=== PATIENT | male | born 1995 | race Caucasian/White ===

== ENCOUNTER 2016-04-05 18:37 | Emergency (ER) | payer SELFPAY ==
[2016-04-05] MEDS ORDERED: metroNIDAZOLE (FLAGYL) 250 MG TAB As Ordered ONE (20:13)
--- NOTE | 2016-04-05 21:01 | EDDOCDS ---
Nurse's Notes [facility] Name: Fredrick Cunningham Age: 20 yrs Sex: Male : 1995 Arrival Date: 04/05/2016 Time: 18:37 Bed TR8 Private MD: No Pcp Diagnosis: Encounter for screening for infections with a predominantly sexual mode of transmission-TRICHOMONIASIS Presentation: 04/05 18:45 Presenting complaint: Patient states: Pt presents requesting STD testing denies any sx dls states he think he has been exposed. Adult Sepsis Screening: The patient does not have new or worsening altered mentation. Patient's respiratory rate is less than 22. Systolic blood pressure is greater than 100. Patient has a qSOFA score of 0- Negative Sepsis Screen. Suicide/Homicide risk assessment- the patient denies having any suicidal and/or homicidal ideations and does not present with any other emotional, behavioral or mental health complaints. Status: Patient is not a auto body service mechanic or dependent. Transition of care: patient was not received from another setting of care. 18:45 Acuity: ZOILA Level 4 dls 18:45 Method Of Arrival: Walkin/Carried/Asstd dls Triage Assessment: 18:46 General: Appears in no apparent distress, cachectic, slender, well developed, Behavior dls is cooperative, quiet. Pain: Denies pain. HIV screening NA for this visit Offered previously. Historical: - Allergies: no known allergies; - Home Meds: 1. none - PMHx: none; - PSHx: none; - Social history: Smoking status: Patient uses tobacco products, light tobacco smoker. No barriers to communication noted, The patient speaks fluent Arabic. - Family history: Not pertinent. - : The pt / caregiver states he / she is not on anticoagulants. Home medication list is obtained from the patient. - Exposure Risk Screening:: None identified. Screenin:58 Screening information is obtained from the patient. Fall risk: No risks identified. ms18 Assistance ADL's: requires no assistance with activities of daily living. Abuse/DV Screen: The patient / caregiver reports he/she is: not in a situation that causes fear, pain or injury. Nutritional screening: No deficits noted. Advance Directives: There is no living will. home support is adequate. Assessment: 20:58 General: Appears in no apparent distress, comfortable, Behavior is appropriate for age, ms18 cooperative. Pain: Location: pelvis. Neurological: No deficits noted. Respiratory: No deficits noted. GI: Abdomen is non- distended. : Patient is sexually active. Derm: Skin is pink, warm & dry. normal. Vital Signs: 18:39 BP 138 / 67; Pulse 89; Resp 18 S; Temp 98.2(O); Pulse Ox 97% on R/A; Weight 65.77 kg gr2 (R); Height 5 ft. 9 in. (175.26 cm) (R); Pain 2/10; 20:53 BP 106 / 59; Pulse 52; Resp 18; Temp 99.0(TE); Pulse Ox 97% on R/A; Pain 0/10; ar3 18:39 Body Mass Index 21.41 (65.77 kg, 175.26 cm) gr2 Vitals: 18:39 Log In Time: April 05, 2016 at 18:39. gr2 ED Course: 18:39 Patient visited by Danielle Brennan. gr2 18:39 No Pcp is Private Physician. gr2 18:39 Patient moved to Waiting gr2 18:41 Patient visited by Danielle Brennan. gr2 18:41 Patient moved to Pre RCE gr2 18:46 Triage Initiated dls 19:30 Remington Davis RPA-C is PHCP. ck7 19:30 Scottie Scott DO is Attending Physician. ck7 19:30 Patient moved to Triage 2 ar3 19:43 Patient visited by Remington Davis RPA-C. ck7 19:47 GC & Chlamydia Amplification Sent. ar3 19:55 Urine Culture Sent. ar3 19:55 UA Sent. ar3 20:15 Patient moved to TR1 cz 20:41 Patient visited by Remington Davis RPA-C. ck7 20:44 [facility] is Referral Physician. ck7 20:45 Patient moved to PR1 / 25 cz 20:46 Patient moved to TR8 cz 20:49 Patient moved to PR1 / 25 ar3 20:53 Patient visited by Lorie Cox PCA. ar3 20:57 Patient moved to TR7 cz 20:57 Patient moved to TR8 ms18 20:58 The patient / caregiver is instructed regarding the plan of care and ED course. Patient ms18 has correct armband on for positive identification. Property sent home with patient. :Personal belongings accompany Pt. 20:58 No IV's were initiated during this patient's visit. No procedures done that require ms18 assistance. Administered Medications: 20:15 Drug: metroNIDAZOLE 500 mg [metronidazole 250 mg tablet (2 tabs)] Route: PO; cz Order Results: Lab Order: UA; SPEC'M 04/05/16 19:43 Test: APPEARANCE, URINE; Value: CLOUDY; Range: CLEAR; Abnormal: Above high normal; Status: F Test: COLOR, URINE; Value: YELLOW; Range: YELLOW; Status: F Test: PH,URINE; Value: 6.0; Range: 5.0-9.0; Units: UNITS; Status: F Test: SPECIFIC GRAVITY URINE AUTO; Value: 1.021; Range: 1.002-1.035; Status: F Test: PROTEIN, URINE AUTO; Value: 1+; Range: NEGATIVE; Abnormal: Above high normal; Units: mg/dL; Status: F Test: GLUCOSE, URINE (UA) AUTO; Value: NEGATIVE; Range: NEGATIVE; Units: mg/dL; Status: F Test: KETONE, URINE AUTO; Value: NEGATIVE; Range: NEGATIVE; Units: mg/dL; Status: F Test: UROBILINOGEN, URINE AUTO; Value: 0.2; Range: 0.0-2.0; Units: mg/dL; Status: F Test: BILIRUBIN, URINE AUTO; Value: NEGATIVE; Range: NEGATIVE; Status: F Test: NITRITE, URINE AUTO; Value: NEGATIVE; Range: NEGATIVE; Status: F Test: LEUKOCYTE ESTERASE, URINE AUTO; Value: NEGATIVE; Range: NEGATIVE; Status: F Test: BLOOD, URINE BLOOD; Value: NEGATIVE; Range: NEGATIVE; Status: F Test: WBC, URINE AUTO; Value: 1; Range: 0-3; Units: /HPF; Status: F Test: RBC, URINE AUTO; Value: 1; Range: 0-3; Units: /HPF; Status: F Test: BACTERIA, URINE AUTO; Value: NEGATIVE; Range: NEGATIVE; Status: F Test: SQUAMOUS EPITHELIAL CELL UR AU; Value: 0; Range: 0-6; Units: /HPF; Status: F Test: MUCUS, URINE; Value: SMALL; Range: NEGATIVE; Status: F Test: HYALINE CAST, URINE AUTO; Value: 0; Range: 0-1; Units: /LPF; Status: F Test: AMORPHOUS SEDIMENT; Value: MODERATE; Range: NEGATIVE; Abnormal: Above high normal; Status: F Outcome: 20:44 Discharge ordered by Provider. ck7 20:58 Discharge Assessment: Patient awake, alert and oriented x 3. No cognitive and/or ms18 functional deficits noted. Patient verbalized understanding of disposition instructions. patient administered narcotics - no. The following High Risk Discharge criteria are identified: None. Discharged to home ambulatory. Condition: good Condition: stable Condition: improved. Discharge instructions given to patient, Instructed on discharge instructions, follow up and referral plans. medication usage, Demonstrated understanding of instructions, medications, Pt was receptive of discharge instructions/ teaching. Prescriptions given X 1. No special radiology studies were completed. 21:00 Patient left the ED. ms18 Signatures: Tiffanie Huynh, RN RN Luis M Nelson RN RN cz Lorie Cox, KERSEY DEPARTMENT SUPERVISOR KERSEY DEPARTMENT SUPERVISOR ar3 Remington Davis, RPA-C RPA-Cck7 Danielle Brennan gr2 Shasta Cunningham RN RN ms18 [facility]
--- NOTE | 2016-04-05 21:01 | EDDOCDS ---
Physician Documentation [facility] Name: Fredrick Cunningham Age: 20 yrs Sex: Male : 1995 Arrival Date: 04/05/2016 Time: 18:37 Bed TR8 Private MD: No Pcp Disposition: 04/05/16 20:44 Discharged to Home/Self Care. Impression: Encounter for screening for infections with a predominantly sexual mode of transmission - TRICHOMONIASIS. - Condition is Stable. - Discharge Instructions: Trichomoniasis. - Prescriptions for Flagyl 500 mg Oral Tablet - take 1 tablet by ORAL route every 12 hours for 7 days; 14 tablet. - Medication Reconciliation, Local Pharmacy Hours form. - [facility] ; When: 2 - 3 days; Reason: Recheck today's complaints, Continuance of care. - Problem is new. - Symptoms have improved. - Notes: USE MEDICATION INSTRUCTED, AVOID ALCOHOL WHILE USING MEDICATION IT WILL CAUSE NAUSEA AND VOMITING IF YOU CONSUME IT WHILE ON FLAGYL, FOLLOW UP WITH THE [facility]ATE [facility] PRO[facility] Historical: - Allergies: no known allergies; - Home Meds: 1. none - PMHx: none; - PSHx: none; - Social history: Smoking status: Patient uses tobacco products, light tobacco smoker. No barriers to communication noted, The patient speaks fluent Belarusian. - Family history: Not pertinent. - : The pt / caregiver states he / she is not on anticoagulants. Home medication list is obtained from the patient. - Exposure Risk Screening:: None identified. Vital Signs: 04/05 18:39 BP 138 / 67; Pulse 89; Resp 18 S; Temp 98.2(O); Pulse Ox 97% on R/A; Weight 65.77 kg / gr2 145 lbs (R); Height 5 ft. 9 in. (175.26 cm) (R); Pain 2/10; 20:53 BP 106 / 59; Pulse 52; Resp 18; Temp 99.0(TE); Pulse Ox 97% on R/A; Pain 0/10; ar3 18:39 Body Mass Index 21.41 (65.77 kg, 175.26 cm) gr2 MDM: 19:42 GC & Chlamydia Amplification Ordered. EDMS 19:53 UA Ordered. EDMS 19:53 Urine Culture Ordered. EDMS 20:01 metroNIDAZOLE 500 mg PO once ordered. ck7 20:16 Financial registration complete. kathe 20:42 UA Reviewed. ck7 Administered Medications: 20:15 Drug: metroNIDAZOLE 500 mg [metronidazole 250 mg tablet (2 tabs)] Route: PO; cz Signatures: Dispatcher [employer] Tiffanie Varghese, RN RN Remington Enriquez, RPA-C RPA-Cck7 Shasta Cunningham RN RN ms18 Dawna Landry Calvin RN cz MTDD
--- NOTE | 2016-04-07 22:01 | EDDOCDS ---
Nurse's Notes [facility] Name: Fredrick Cunningham Age: 20 yrs Sex: Male : 1995 Arrival Date: 04/05/2016 Time: 18:37 Bed TR8 Private MD: No Pcp Diagnosis: Encounter for screening for infections with a predominantly sexual mode of transmission-TRICHOMONIASIS Presentation: 04/05 18:45 Presenting complaint: Patient states: Pt presents requesting STD testing denies any sx dls states he think he has been exposed. Adult Sepsis Screening: The patient does not have new or worsening altered mentation. Patient's respiratory rate is less than 22. Systolic blood pressure is greater than 100. Patient has a qSOFA score of 0- Negative Sepsis Screen. Suicide/Homicide risk assessment- the patient denies having any suicidal and/or homicidal ideations and does not present with any other emotional, behavioral or mental health complaints. Status: Patient is not a legal service specialist or dependent. Transition of care: patient was not received from another setting of care. 18:45 Acuity: ZOILA Level 4 dls 18:45 Method Of Arrival: Walkin/Carried/Asstd dls Triage Assessment: 18:46 General: Appears in no apparent distress, cachectic, slender, well developed, Behavior dls is cooperative, quiet. Pain: Denies pain. HIV screening NA for this visit Offered previously. Historical: - Allergies: no known allergies; - Home Meds: 1. none - PMHx: none; - PSHx: none; - Social history: Smoking status: Patient uses tobacco products, light tobacco smoker. No barriers to communication noted, The patient speaks fluent Pashto. - Family history: Not pertinent. - : The pt / caregiver states he / she is not on anticoagulants. Home medication list is obtained from the patient. - Exposure Risk Screening:: None identified. Screenin:58 Screening information is obtained from the patient. Fall risk: No risks identified. ms18 Assistance ADL's: requires no assistance with activities of daily living. Abuse/DV Screen: The patient / caregiver reports he/she is: not in a situation that causes fear, pain or injury. Nutritional screening: No deficits noted. Advance Directives: There is no living will. home support is adequate. Assessment: 20:58 General: Appears in no apparent distress, comfortable, Behavior is appropriate for age, ms18 cooperative. Pain: Location: pelvis. Neurological: No deficits noted. Respiratory: No deficits noted. GI: Abdomen is non- distended. : Patient is sexually active. Derm: Skin is pink, warm & dry. normal. Vital Signs: 18:39 BP 138 / 67; Pulse 89; Resp 18 S; Temp 98.2(O); Pulse Ox 97% on R/A; Weight 65.77 kg gr2 (R); Height 5 ft. 9 in. (175.26 cm) (R); Pain 2/10; 20:53 BP 106 / 59; Pulse 52; Resp 18; Temp 99.0(TE); Pulse Ox 97% on R/A; Pain 0/10; ar3 18:39 Body Mass Index 21.41 (65.77 kg, 175.26 cm) gr2 Vitals: 18:39 Log In Time: April 05, 2016 at 18:39. gr2 ED Course: 18:39 Patient visited by Danielle Brennan. gr2 18:39 No Pcp is Private Physician. gr2 18:39 Patient moved to Waiting gr2 18:41 Patient visited by Danielle Brennan. gr2 18:41 Patient moved to Pre RCE gr2 18:46 Triage Initiated dls 19:30 Remington Davis RPA-C is PHCP. ck7 19:30 Scottie Scott DO is Attending Physician. ck7 19:30 Patient moved to Triage 2 ar3 19:43 Patient visited by Remington Davis RPA-C. ck7 19:47 GC & Chlamydia Amplification Sent. ar3 19:55 Urine Culture Sent. ar3 19:55 UA Sent. ar3 20:15 Patient moved to TR1 cz 20:41 Patient visited by Remington Davis RPA-C. ck7 20:44 [facility] is Referral Physician. ck7 20:45 Patient moved to PR1 / 25 cz 20:46 Patient moved to TR8 cz 20:49 Patient moved to PR1 / 25 ar3 20:53 Patient visited by Lorie Cox PCA. ar3 20:57 Patient moved to TR7 cz 20:57 Patient moved to TR8 ms18 20:58 The patient / caregiver is instructed regarding the plan of care and ED course. Patient ms18 has correct armband on for positive identification. Property sent home with patient. :Personal belongings accompany Pt. 20:58 No IV's were initiated during this patient's visit. No procedures done that require ms18 assistance. 21:52 [facility] Payment Agreement was scanned into [employer] and attached to record. kathe 22:04 T-Sheet-- Draft Copy was scanned into [employer] and attached to record. klr Administered Medications: 20:15 Drug: metroNIDAZOLE 500 mg [metronidazole 250 mg tablet (2 tabs)] Route: PO; cz Order Results: Lab Order: GC & Chlamydia Amplification; SPEC'M 04/05/16 19:43 Test: CHLAMYDIA DNA AMPLIFICATION; Value: NEGATIVE; Range: NEGATIVE; Status: F Test: GC DNA AMPLIFICATION; Value: NEGATIVE; Range: NEGATIVE; Status: F Lab Order: UA; SPEC'M 04/05/16 19:43 Test: APPEARANCE, URINE; Value: CLOUDY; Range: CLEAR; Abnormal: Above high normal; Status: F Test: COLOR, URINE; Value: YELLOW; Range: YELLOW; Status: F Test: PH,URINE; Value: 6.0; Range: 5.0-9.0; Units: UNITS; Status: F Test: SPECIFIC GRAVITY URINE AUTO; Value: 1.021; Range: 1.002-1.035; Status: F Test: PROTEIN, URINE AUTO; Value: 1+; Range: NEGATIVE; Abnormal: Above high normal; Units: mg/dL; Status: F Test: GLUCOSE, URINE (UA) AUTO; Value: NEGATIVE; Range: NEGATIVE; Units: mg/dL; Status: F Test: KETONE, URINE AUTO; Value: NEGATIVE; Range: NEGATIVE; Units: mg/dL; Status: F Test: UROBILINOGEN, URINE AUTO; Value: 0.2; Range: 0.0-2.0; Units: mg/dL; Status: F Test: BILIRUBIN, URINE AUTO; Value: NEGATIVE; Range: NEGATIVE; Status: F Test: NITRITE, URINE AUTO; Value: NEGATIVE; Range: NEGATIVE; Status: F Test: LEUKOCYTE ESTERASE, URINE AUTO; Value: NEGATIVE; Range: NEGATIVE; Status: F Test: BLOOD, URINE BLOOD; Value: NEGATIVE; Range: NEGATIVE; Status: F Test: WBC, URINE AUTO; Value: 1; Range: 0-3; Units: /HPF; Status: F Test: RBC, URINE AUTO; Value: 1; Range: 0-3; Units: /HPF; Status: F Test: BACTERIA, URINE AUTO; Value: NEGATIVE; Range: NEGATIVE; Status: F Test: SQUAMOUS EPITHELIAL CELL UR AU; Value: 0; Range: 0-6; Units: /HPF; Status: F Test: MUCUS, URINE; Value: SMALL; Range: NEGATIVE; Status: F Test: HYALINE CAST, URINE AUTO; Value: 0; Range: 0-1; Units: /LPF; Status: F Test: AMORPHOUS SEDIMENT; Value: MODERATE; Range: NEGATIVE; Abnormal: Above high normal; Status: F Lab Order: Urine Culture; SPEC'M 04/05/16 19:43 Test: URINE CULTURE; Value: <EXTERNAL COMMENT eCWMed> FULL REPORT IN LAB NOTES (eCW and Medent).; Status: F Test: URINE CULTURE; Value: URINE CULTURE RESULT NO GROWTH; Status: F Outcome: 20:44 Discharge ordered by Provider. ck7 20:58 Discharge Assessment: Patient awake, alert and oriented x 3. No cognitive and/or ms18 functional deficits noted. Patient verbalized understanding of disposition instructions. patient administered narcotics - no. The following High Risk Discharge criteria are identified: None. Discharged to home ambulatory. Condition: good Condition: stable Condition: improved. Discharge instructions given to patient, Instructed on discharge instructions, follow up and referral plans. medication usage, Demonstrated understanding of instructions, medications, Pt was receptive of discharge instructions/ teaching. Prescriptions given X 1. No special radiology studies were completed. 21:00 Patient left the ED. ms18 Signatures: Tiffanie Huynh RN Luis M Lopez RN RN cz Rabon, Alicia, TAB MACHINE OPERATOR TAB MACHINE OPERATOR ar3 Remington Davis, RPA-C RPA-Cck7 Danielle Brennan gr2 Shasta Cunningham RN RN ms18 Dawna Landry Kathie klr Chart Complete MTDD
--- NOTE | 2016-04-07 22:01 | EDDOCDS ---
Physician Documentation [facility] Name: Fredrick Cunningham Age: 20 yrs Sex: Male : 1995 Arrival Date: 04/05/2016 Time: 18:37 Bed TR8 Private MD: No Pcp Disposition: 04/05/16 20:44 Discharged to Home/Self Care. Impression: Encounter for screening for infections with a predominantly sexual mode of transmission - TRICHOMONIASIS. - Condition is Stable. - Discharge Instructions: Trichomoniasis. - Prescriptions for Flagyl 500 mg Oral Tablet - take 1 tablet by ORAL route every 12 hours for 7 days; 14 tablet. - Medication Reconciliation, Local Pharmacy Hours form. - [facility] ; When: 2 - 3 days; Reason: Recheck today's complaints, Continuance of care. - Problem is new. - Symptoms have improved. - Notes: USE MEDICATION INSTRUCTED, AVOID ALCOHOL WHILE USING MEDICATION IT WILL CAUSE NAUSEA AND VOMITING IF YOU CONSUME IT WHILE ON FLAGYL, FOLLOW UP WITH THE [facility]ATE [facility] PRO[facility] Historical: - Allergies: no known allergies; - Home Meds: 1. none - PMHx: none; - PSHx: none; - Social history: Smoking status: Patient uses tobacco products, light tobacco smoker. No barriers to communication noted, The patient speaks fluent Danish. - Family history: Not pertinent. - : The pt / caregiver states he / she is not on anticoagulants. Home medication list is obtained from the patient. - Exposure Risk Screening:: None identified. Vital Signs: 04/05 18:39 BP 138 / 67; Pulse 89; Resp 18 S; Temp 98.2(O); Pulse Ox 97% on R/A; Weight 65.77 kg / gr2 145 lbs (R); Height 5 ft. 9 in. (175.26 cm) (R); Pain 2/10; 20:53 BP 106 / 59; Pulse 52; Resp 18; Temp 99.0(TE); Pulse Ox 97% on R/A; Pain 0/10; ar3 18:39 Body Mass Index 21.41 (65.77 kg, 175.26 cm) gr2 MDM: 19:42 GC & Chlamydia Amplification Ordered. EDMS 19:53 UA Ordered. EDMS 19:53 Urine Culture Ordered. EDMS 20:01 metroNIDAZOLE 500 mg PO once ordered. ck7 20:16 Financial registration complete. [facility] 20:42 UA Reviewed. ck7 21:52 [facility] Payment Agreement was scanned into [employer] and attached to record. [facility] : T-Sheet-- Draft Copy was scanned into [employer] and attached to record. klr Administered Medications: 20:15 Drug: metroNIDAZOLE 500 mg [metronidazole 250 mg tablet (2 tabs)] Route: PO; cz Signatures: Dispatcher [employer] EDTiffanie Alfredo RN RN dls Kwaczala, Christopher, RPA-C RPA-Cck7 Shasta Cunningham RN RN ms18 Dawna Landry Kathie klr Zecher, Calvin RN cz The chart was reviewed and I authenticate all verbal orders and agree with the evaluation and treatment provided.Attachments: 21:52 [facility] Payment Agreement [facility] 22:04 T-Sheet-- Draft Copy klr Chart Complete MTDD
--- NOTE | 2016-04-07 22:01 | EDDOCDS ---
Physician Documentation [facility] Name: Fredrick Cunningham Age: 20 yrs Sex: Male : 1995 Arrival Date: 04/05/2016 Time: 18:37 Bed TR8 Private MD: No Pcp Disposition: 04/05/16 20:44 Discharged to Home/Self Care. Impression: Encounter for screening for infections with a predominantly sexual mode of transmission - TRICHOMONIASIS. - Condition is Stable. - Discharge Instructions: Trichomoniasis. - Prescriptions for Flagyl 500 mg Oral Tablet - take 1 tablet by ORAL route every 12 hours for 7 days; 14 tablet. - Medication Reconciliation, Local Pharmacy Hours form. - [facility]: [facility] ; When: 2 - 3 days; Reason: Recheck today's complaints, Continuance of care. - Problem is new. - Symptoms have improved. - Notes: USE MEDICATION INSTRUCTED, AVOID ALCOHOL WHILE USING MEDICATION IT WILL CAUSE NAUSEA AND VOMITING IF YOU CONSUME IT WHILE ON FLAGYL, FOLLOW UP WITH THE GRADUATE MEDICAL PROGRAM Historical: - Allergies: no known allergies; - Home Meds: 1. none - PMHx: none; - PSHx: none; - Social history: Smoking status: Patient uses tobacco products, light tobacco smoker. No barriers to communication noted, The patient speaks fluent Lao. - Family history: Not pertinent. - : The pt / caregiver states he / she is not on anticoagulants. Home medication list is obtained from the patient. - Exposure Risk Screening:: None identified. Vital Signs: 04/05 18:39 BP 138 / 67; Pulse 89; Resp 18 S; Temp 98.2(O); Pulse Ox 97% on R/A; Weight 65.77 kg / gr2 145 lbs (R); Height 5 ft. 9 in. (175.26 cm) (R); Pain 2/10; 20:53 BP 106 / 59; Pulse 52; Resp 18; Temp 99.0(TE); Pulse Ox 97% on R/A; Pain 0/10; ar3 18:39 Body Mass Index 21.41 (65.77 kg, 175.26 cm) gr2 MDM: 19:42 GC & Chlamydia Amplification Ordered. EDMS 19:53 UA Ordered. EDMS 19:53 Urine Culture Ordered. EDMS 20:01 metroNIDAZOLE 500 mg PO once ordered. ck7 20:16 Financial registration complete. [facility] 20:42 UA Reviewed. ck7 21:52 [facility] Payment Agreement was scanned into [employer] and attached to record. [facility] : T-Sheet-- Draft Copy was scanned into [employer] and attached to record. klr Administered Medications: 20:15 Drug: metroNIDAZOLE 500 mg [metronidazole 250 mg tablet (2 tabs)] Route: PO; cz Signatures: Dispatcher [employer] EDTiffanie Alfredo RN RN dls Kwaczala, Christopher, RPA-C RPA-Cck7 Shasta Cunningham RN RN ms18 Dawna Landry Kathie klr Zecher, Calvin RN cz The chart was reviewed and I authenticate all verbal orders and agree with the evaluation and treatment provided.Attachments: 21:52 [facility] Payment Agreement [facility] 22:04 T-Sheet-- Draft Copy klr Chart Complete MTDD
== END 2016-04-05 21:00 | disposition home or self-care (01) ==
LOC: M ED 18:37
DX: A59.00 Urogenital trichomoniasis, unspecified (principal); F17.228 Nicotine dependence, chewing tobacco, with other nicotine-induced disorders